=== PATIENT | male | born 1995 | race Caucasian/White ===

== ENCOUNTER 2020-10-20 01:18 | Emergency (ER) | payer OTHER ==
[2020-10-20] MEDS ORDERED: SUMAtriptan 6 MG/0.5 ML SDV SUBCUT ONE (02:30)
[2020-10-20] MEDS ORDERED: Ketorolac 60 MG/2 ML SDV IM ONE (02:31)
--- NOTE | 2020-10-20 02:35 | EDM.PDOC ---
ED HPI GENERAL MEDICAL PROBLEM - General Chief Complaint: Upper Extremity Injury/Pain Stated Complaint: elbow pain Time Seen by Provider: 10/20/20 01:50 Source of Information: Reports: Patient History Limitations: Reports: No Limitations - History of Present Illness INITIAL COMMENTS - FREE TEXT/NARRATIVE: Fell at work/[employer]. Landed on right elbow. Now has pain in right elbow that sometimes shoots upwards/downwards with movement of elbow. No other new complaints. No numbness of arm. No wounds. No new weakness. Has had migraine/tension headache for approx 2 weeks. Seen in clinic for this, given Amitriptyline to try. Has not changed headache. Right Elbow Pain Score (Numeric/FACES): 7 - Related Data Allergies Allergy/AdvReac Type Severity Reaction Status Date / Time No Known Allergies Allergy Verified 10/20/20 01:34 Home Meds: Home Meds Amitriptyline [Elavil] 25 mg PO BEDTIME 10/20/20 [History] ZOLMitriptan [Zolmitriptan Odt] 2.5 mg PO ASDIRECTED PRN 10/20/20 [History] Past Medical History HEENT History: Reports: Impaired Vision Respiratory History: Reports: Asthma, Other (See Below) Other Respiratory History: Possible childhood asthma Gastrointestinal History: Reports: None Musculoskeletal History: Reports: Arthritis, None Neurological History: Reports: None Endocrine/Metabolic History: Reports: None Hematologic History: Reports: None Immunologic History: Reports: None Oncologic (Cancer) History: Reports: None Dermatologic History: Reports: None - Infectious Disease History Infectious Disease History: Reports: Chicken Pox, Shingles - Past Surgical History HEENT Surgical History: Reports: Adenoidectomy, Myringotomy w Tube(s), Other (See Below), Oral Surgery, Tonsillectomy Social & Family History - Family History HEENT: Reports: None Cardiac: Reports: Bypass, CAD, High Cholesterol, Hypertension, RI, Other (See Below) Other Cardiac Family History: Paternal grandfather with RI at age 55 with CABG 3. Paternal great-grandfather with hyperlipidemia. Father with hypertension. Respiratory: Reports: None GI: Reports: None : Reports: None OBGYN: Reports: None Musculoskeletal: Reports: Arthritis, Other (See Below), Osteoarthritis Other Musculoskeletal Family History: Father with osteoarthritis. Neurological: Reports: CVA, Other (See Below) Other Neurological Family History: Paternal grandmother with CVA in her 60s. Psychiatric: Reports: None Endocrine/Metabolic: Reports: None Hematologic: Reports: None Immunologic: Reports: None Dermatologic: Reports: None Oncologic: Reports: Breast, Metastatic, Other (See Below) Other Oncologic Family History: Paternal great grandmother with fatal metastatic breast cancer at age 88 with previous history of known type of abdominal cancer. Paternal great-grandfather with unknown type of fatal cancer. - Caffeine Use Caffeine Use: Reports: Coffee (5 Cups per week), Energy Drinks (1 can per week), Soda (2 cans per week any). Denies: Tea - Living Situation & Occupation Living situation: Reports: with Family, Single Occupation: Employed ([employer]) Review of Systems - Review of Systems Review Of Systems: See Below Eyes: Reports: No Symptoms Ears: Reports: No Symptoms Nose: Reports: No Symptoms Mouth/Throat: Reports: No Symptoms Respiratory: Reports: No Symptoms Cardiovascular: Reports: No Symptoms GI/Abdominal: Reports: No Symptoms Genitourinary: Reports: No Symptoms Musculoskeletal: Reports: Joint Pain (right elbow). Denies: Joint Swelling Skin: Reports: No Symptoms Neurological: Reports: Headache. Denies: Numbness, Paresthesia, Tingling, Weakness Psychiatric: Reports: No Symptoms ED EXAM, GENERAL - Physical Exam Exam: See Below Exam Limited By: No Limitations General Appearance: Alert, WD/WN, No Apparent Distress Eye Exam: Bilateral Eye: EOMI, PERRL Ears: Hearing Grossly Normal Nose: No: Nasal Deformity, Nasal Swelling Throat/Mouth: Normal Lips, Normal Voice Head: Atraumatic, Normocephalic Neck: Supple Respiratory/Chest: No Respiratory Distress Back Exam: No: Decreased Range of Motion Extremities: Normal Range of Motion, Normal Capillary Refill, Other (tender with palpation over point of right elbow. No swelling or discoloration. Good ROM/no clicking. Unremarkable exam proximal and distal to right elbow. ) Neurological: Alert, Oriented, CN II-XII Intact, Normal Cognition, Normal Gait, No Motor/Sensory Deficits Psychiatric: Normal Affect, Normal Mood Skin Exam: Warm, Dry, Intact, Normal Color Course - Vital Signs Last Recorded V/S: Last Vital Signs Temp 36.5 C 10/20/20 01:19 Pulse 71 10/20/20 01:19 Resp 18 10/20/20 01:19 BP 135/84 10/20/20 01:19 Pulse Ox 98 10/20/20 01:19 - Orders/Labs/Meds Orders: Active Orders 24 hr Category Date Time Status Elbow 2V Rt [CR] Stat Exams 10/20/20 01:24 Taken - Re-Assessments/Exams Free Text/Narrative Re-Assessment/Exam: 10/20/20 02:36 Xray of right elbow did not show acute fracture. Ice/rest recommended. No return to work tonight/tomorrow. Full duty two nights from now. If pain is not much better by then needs recheck/restrictions Saturday. Discussed headache. Patient has put on 20 pounds over winter with job change at [employer]. Eating unhealthful foods. Has cut back ETOH intake but no weight loss. Long time spent discussing lifestyle strategies for healthy weight/headaches. Will give patient Toradol tonight for the elbow injury and headache. Also will try single dose Imitrex. To follow up with primary provider for continued workup as needed. Departure - Departure Time of Disposition: 02:39 Disposition: Home, Self-Care 01 Condition: Good Clinical Impression: Chronic tension-type headache, intractable, Contusion of right elbow, initial encounter - Discharge Information *PRESCRIPTION DRUG MONITORING PROGRAM REVIEWED*: Not Applicable *COPY OF PRESCRIPTION DRUG MONITORING REPORT IN PATIENT ANTONIO: Not Applicable Instructions: Elbow Contusion, [id number] Referrals: Nilda Wright NP [Primary Care Provider] - Additional Instructions: Ice/rest elbow. OK to take Tylenol or Aleve or Ibuprofen. Get rechecked on Saturday if you need further work restrictions. As discussed, sometimes repeat imaging is needed if pain persists and initial xrays negative. For headache: as discussed a combination of factors may be present. junior marketing associate/job change/weight gain/diet choices/stress/low magnesium/low vitamin D can all contribute to headache. Recommend you follow up with your provider and get a baseline CT of the head to rule out weird causes of headache if it does not go away this week. Start Magnesium and Vitamin D as recommended. Start a good quality fish oil (nordic naturals is good) and take 1-2 gram of combo EPA and DHA daily. Perform elimination diet which will take away common triggers for headache and will help you clean up the junky part of your current diet. Processed foods/wheat/gluten/dairy can be big triggers. Start decreasing your caffeine intake. Follow up as needed otherwise if you have new or worsening problems. Sepsis Event Note (ED) - Evaluation Sepsis Screening Result: No Definite Risk - Focused Exam Vital Signs: Vital Signs Temp Pulse Resp BP Pulse Ox 10/20/20 01:19 36.5 C 71 18 135/84 98 - My Orders Last 24 Hours: My Active Orders 10/20/20 01:24 Elbow 2V Rt [CR] Stat - Assessment/Plan Last 24 Hours: My Active Orders 10/20/20 01:24 Elbow 2V Rt [CR] Stat
[2020-10-20] MEDS ORDERED: Magnesium Oxide 400 MG Tab PO ONE (02:51)
== END 2020-10-20 03:00 | disposition home or self-care (01) ==
LOC: LL.ED 01:18
DX: S50.01XA Contusion of right elbow, initial encounter (principal); G44.221 Chronic tension-type headache, intractable; W01.0XXA Fall on same level from slipping, tripping and stumbling without subsequent striking against object, initial encounter; Y92.89 Other specified places as the place of occurrence of the external cause; Y99.0 Civilian activity done for income or pay
CPT/HCPCS: 73070; 96372; 99283; J1885; J3030

== ENCOUNTER → 2024-05-14 | Day surgery (SDC) | payer OTHER ==
[~2024-05-14] MED LIST: Ketamine 500 mg/10 ML MDV ONE; Midazolam 1 MG/ML 2 ML SDV ONE; Propofol 200 MG/20 ML SDV ONE; Sodium Chloride 0.9% 10 ML Syringe FLUSH PRN
[2024-05-14] MEDS: Lactated Ringers 1,000 ML IV SCH (11:41)
== END ==
LOC: LL.SDS 11:23
PROVIDERS: ATTEND Surgery
DX: R13.10 Dysphagia, unspecified (principal); K20.90 Esophagitis, unspecified without bleeding; Z79.899 Other long term (current) drug therapy
CPT/HCPCS: 43239; J7120